=== PATIENT | female | born 1950 | race Caucasian/White ===

== ENCOUNTER → 2017-07-29 | Outpatient (CLI) | payer OTHER, MEDICARE ==
[~2017-07-29] MED LIST: ATORVASTATIN CA80 MG PO; LEVOTHYROXINE175 MCG PO; LISINOPRIL10 MG PO; NITROSTAT0.4 MG SL; TOPROL XL25 MG PO
== END | disposition home or self-care (01) ==
LOC: JMC 07:40
PROC: 07DR3ZX Extraction of Iliac Bone Marrow, Percutaneous Approach, Diagnostic (ICD-10-PCS; principal; 2017-07-29)
DX: D69.6 Thrombocytopenia, unspecified (principal)
CPT/HCPCS: 38221